=== PATIENT | female | born 1960 | race Caucasian/White ===

== ENCOUNTER → 2021-06-19 | Emergency (ER) | payer BC, SELFPAY ==
[2021-06-19 14:30] VITALS: BP_SYST 117
== END | disposition left against medical advice (07) ==
LOC: SED 14:30
DX: U07.1 COVID-19 (principal); Z53.21 Procedure and treatment not carried out due to patient leaving prior to being seen by health care provider

== ENCOUNTER 2022-04-22 16:22 | Inpatient (IN) | payer BC ==
[~2022-04-22] VITALS: Ht 152.4 cm; Wt 64.9 kg
[2022-04-22 16:29] VITALS: BP_SYST 149
--- NOTE | 2022-04-22 16:30 | NUR ---
Patient triaged and placed in waiting room. VSS and patient appears in no acute distress at this time. Accompanied by SELF, awaiting available bed, and MD notified of need for MSE.
[2022-04-22 16:57] LABS: BASOPHILS # (AUTO) 0.1 K/uL (0.0-0.2); BASOPHILS % (AUTO) 1.2 % (0.0-2.0); EOSINOPHILS # (AUTO) 0.2 K/uL (0.0-0.4); EOSINOPHILS % (AUTO) 2.1 % (0.0-4.0); HEMATOCRIT 42.6 % (36-48); HEMOGLOBIN 14.8 g/dL (12.0-16.0); LYMPHOCYTES # (AUTO) 2.4 K/uL (1.0-5.5); LYMPHOCYTES % (AUTO) 28.4 % (20.5-51.5); MEAN CORPUSCULAR HEMOGLOBIN 32 pg (27-31); MEAN CORPUSCULAR HGB CONC 35 % (32-36); MEAN CORPUSCULAR VOLUME 91 fL (79.0-98.0); MONOCYTES # (AUTO) 0.7 K/uL (0.0-1.0); MONOCYTES % (AUTO) 8.6 % (1.7-9.3); NEUTROPHILS # (AUTO) 5.1 K/uL (1.8-7.7); NEUTROPHILS % (AUTO) 59.7 % (40.0-70.0); PLATELET COUNT (AUTO) 296 K/uL (130-430); RED CELL DISTRIBUTION WIDTH 12.7 % (9.0-15.0); WHITE BLOOD COUNT (AUTO) 8.5 K/uL (4.8-10.8)
[2022-04-22 17:11] LABS: ALANINE AMINOTRANSFERASE 27 U/L (12-78); ALBUMIN 3.9 g/dL (3.4-4.8); ANION GAP 8 (5-15); ASPARTATE AMINOTRANSFERASE 21 U/L (10-37); CALCIUM 9.6 mg/dL (8.4-11.0); CHLORIDE 105 mmol/L (98-107); CREATININE 0.88 mg/dL (0.55-1.30); GLUCOSE 109 mg/dL (70-99); POTASSIUM 4.3 mmol/L (3.5-5.1); TOTAL BILIRUBIN 0.5 mg/dL (0.0-1.0); UREA NITROGEN, BLOOD 18 mg/dL (8-21)
[2022-04-22 17:16] LABS: GFR AFRICAN AMERICAN 84 mL/min (>90)
--- NOTE | 2022-04-22 21:38 | NUR ---
Pt from home with c/o chest pressure and SOB with exerction for 2 weeks. Pt was told by PA to come to ER. Pt slightly tachycardic at 97 BPM. Pt speaking in full sentences with even and unlabored resps, O2 sat at 94%
--- NOTE | 2022-04-22 22:31 | NUR ---
Dr. Shell at bedside with patient for evaluation.
[2022-04-22] MEDS ORDERED: ASPIRIN 81 MG TAB.CHEW PO ONE (22:45)
--- NOTE | 2022-04-22 22:48 | NUR ---
# 20 gauge angiocath placed to LAC. Use of asceptic technique. Opsite placed over site. Blood return noted. Flushed with 10 cc of normal saline. No evidence of infiltration noted. Patient tolerated well.
--- NOTE | 2022-04-22 22:51 | NUR ---
PHAM COLLECTED AND SENT TO LAB.
--- NOTE | 2022-04-22 23:05 | NUR ---
Pt unable to provide all at home medications. Pt reports that family will bring medication list in the morning.
--- NOTE | 2022-04-22 23:45 | NUR ---
Admit bed requested Patient will be admitted to care of . Admitted to TELE unit. Diagnosis: SOB, TACHYCARDIA Inpatient (Yes or No) Y Observation (Yes or No) N Orientation concerns or request close to nursing station (Yes or No) N Covid Status : PENDING From Home (Yes or if No enter name of facility) YES Med Rec Completed (Yes of No) PENDING
--- NOTE | 2022-04-23 00:30 | NUR ---
Patient will be admitted to care of Dr. Bhatti. Admitted to TELEMETRY unit. Will go to room 116A. Belongings list completed. Complete and up to date summary report printed. SBAR report given to Miko FLORES at bedside with opportunity for questions.
[2022-04-23 00:54] VITALS: BP_SYST 139
--- NOTE | 2022-04-23 02:00 | NUR ---
Got the report from Er nurse about the new admitted patient. Pt is alert and oriented x 4 very pleasant, cooperative and ambulatory. Boyfriend was at the bedside.
[2022-04-23 02:36] VITALS: BP_SYST 139
[2022-04-23 06:30] LABS: BASOPHILS # (AUTO) 0.2 K/uL (0.0-0.2); BASOPHILS % (AUTO) 2.1 % (0.0-2.0); EOSINOPHILS # (AUTO) 0.2 K/uL (0.0-0.4); EOSINOPHILS % (AUTO) 2.2 % (0.0-4.0); HEMOGLOBIN 14.6 g/dL (12.0-16.0); LYMPHOCYTES # (AUTO) 1.9 K/uL (1.0-5.5); LYMPHOCYTES % (AUTO) 22.7 % (20.5-51.5); MEAN CORPUSCULAR HEMOGLOBIN 31 pg (27-31); MEAN CORPUSCULAR HGB CONC 35 % (32-36); MEAN CORPUSCULAR VOLUME 91 fL (79.0-98.0); MONOCYTES # (AUTO) 0.5 K/uL (0.0-1.0); MONOCYTES % (AUTO) 6.3 % (1.7-9.3); NEUTROPHILS # (AUTO) 5.7 K/uL (1.8-7.7); NEUTROPHILS % (AUTO) 66.7 % (40.0-70.0); PLATELET COUNT (AUTO) 282 K/uL (130-430); RED BLOOD CELL COUNT(AUTO) 4.64 MIL/uL (4.2-6.2); WHITE BLOOD COUNT (AUTO) 8.6 K/uL (4.8-10.8)
[2022-04-23 06:46] LABS: CALCIUM 8.7 mg/dL (8.4-11.0); CREATININE 0.86 mg/dL (0.55-1.30); POTASSIUM 3.9 mmol/L (3.5-5.1)
--- NOTE | 2022-04-23 07:30 | NUR ---
OPENING NOTES: PATIENT IS RESTING IN BED QUIETLY. AAOX4 ABLE TO MAKE NEEDS KNOWN. NO ADDITIONAL DISTRESS OR PAIN NOTED. EXPLAINED POC AND PATIENT VERBALIZED UNDERSTANDING. BED IN LOW AND LOCK POSITION. CALL LIGHT AND BEDSIDE TABLE WITHIN REACH. STABLE CONDITION AT THIS TIME.
[2022-04-23 08:00] VITALS: BP_SYST 142; BP_SYST 147
[2022-04-23] MEDS ORDERED: LOSA100T3 PO (08:25)
[2022-04-23] MEDS ORDERED: ROSU5TAB13 PO (08:25)
--- NOTE | 2022-04-23 10:35 | NUR ---
CONSULTATION PAGED/CALLED Reason for Consultation: []chest pain Person Who was Notified: []Neela Consulting Physician: [] Dr. [place] Tree Thinner Specialty: []cardio Ordering Physician: []Dr. Bhatti
[2022-04-23 11:22] VITALS: BP_SYST 150
[2022-04-23] MEDS ORDERED: ROSUVASTATIN CALCIUM 5 MG/TAB (CRESTOR) PO SCH (12:45)
[2022-04-23] MEDS ORDERED: ATORVASTATIN 20 MG TABLET PO ONE (13:00)
[2022-04-23] MEDS ORDERED: LOSARTAN POTASSIUM 50 MG TABLET (COZAAR) PO ONE (13:30)
--- NOTE | 2022-04-23 14:20 | NUR ---
CONSULTATION PAGED/CALLED Reason for Consultation: []SOB Person Who was Notified: []Christopher Consulting Physician: [] Dr. Sneed Text Transcriber Specialty: []Pulmonary Ordering Physician: []Dr. Bhatti
--- NOTE | 2022-04-23 14:21 | NUR ---
CONSULTATION PAGED/CALLED Reason for Consultation: []CP Person Who was Notified: []Porsha Consulting Physician: [] / Roula Howe Telehealth Nurse Specialty: []Cardio Ordering Physician: []Dr. Bhatti
[2022-04-23 16:35] VITALS: BP_SYST 125
--- NOTE | 2022-04-23 16:37 | NUR ---
REFUSED CURRENT MEDICATION: PER PATIENT SHE WILL TAKE HER CRESTOR AND COZAAR WHEN SHE GETS HOME TODAY. SPOKE WITH DR RIOS AND STATED THAT HE WILL DC HER HOME TODAY. PATIENT DOES NOT WANT TO WEAR HER TELE MONITOR SINCE SHES BEING DC HOME. AT THE BEDSIDE AND PATIENT IS GETTING DRESS. Addendum: 04/23/22 at 1806 by Eighty Nine MARK Panda RN REFUSED ATORVASTATIN NOT CRESTOR Addendum: 04/23/22 at 1807 by Pablo Panda RN RN NOT . A YARITZA "FRIEND" AT THE BEDSIDE
[2022-04-23 17:36] VITALS: BP_SYST 125
--- NOTE | 2022-04-23 17:55 | NUR ---
DC HOME: DC INSTRUCTION GIVEN AND EXPLAINED TO PATIENT AND SHE VERBALIZED UNDERSTANDING. IV REMOVED FROM THE RFA. IV CATH INTACT WHEN REMOVED. COVER SITE WITH GAUZE AND SECURE WITH TAPE. NO BLEEDING NOTED. DENIES PAIN OR DISTRESS AT THIS TIME. WHEELED OUT PATIENT IN A STABLE CONDITION ACCOMPANIED BY PRIMARY NURSE AND A YARITZA FRIEND. ALL PERSONAL BELONGINGS GIVEN TO PATIENT AND SHE DENIES MISSING ITEMS.
[2022-04-24] MEDS ORDERED: LOSARTAN POTASSIUM 50 MG TABLET (COZAAR) PO SCH (09:00)
[2022-04-24] MEDS ORDERED: ATORVASTATIN 20 MG TABLET PO SCH (09:00)
== END 2022-04-23 17:52 | disposition home or self-care (01) | DRG 206 ==
LOC: SED 16:22 → STU 23:45
PROVIDERS: ADMIT Internal Medicine; ATTEND Internal Medicine
DX: R09.02 Hypoxemia (principal); Z20.822 Contact with and (suspected) exposure to COVID-19; I27.20 Pulmonary hypertension, unspecified; E78.00 Pure hypercholesterolemia, unspecified; Z88.0 Allergy status to penicillin; Z79.899 Other long term (current) drug therapy; R07.89 Other chest pain
CPT/HCPCS: 36415; 71045; 80048; 80053; 84484; 85025; 85379; 93005; 99285; G0378

== ENCOUNTER 2022-06-30 01:38 | Emergency (ER) | payer BC ==
[~2022-06-30] VITALS: Ht 152.4 cm; Wt 66.7 kg
[~2022-06-30 01:38] MED LIST: LOSA100T3 PO; ROSU5TAB13 PO
[2022-06-30 01:40] VITALS: BP_SYST 141
--- NOTE | 2022-06-30 01:49 | NUR ---
Placed in room 8 . Placed on rn cardiac, blood pressure machine and pulse oximeter. To gown for exam. Side rails up.
--- NOTE | 2022-06-30 02:06 | NUR ---
ER at bedside examining patient.
[2022-06-30] MEDS ORDERED: PRED20TA PO (02:22)
[2022-06-30] MEDS ORDERED: predniSONE 20 MG TABLET PO ONE (02:30)
[2022-06-30 02:40] VITALS: BP_SYST 138
--- NOTE | 2022-06-30 02:40 | NUR ---
Patient given written and verbal discharge instructions and verbalizes understanding. ER MD discussed with patient the results and treatment provided. Patient in stable condition. ID arm band removed. Rx of Prednisone given. Patient educated on pain management and to follow up with PMD. Pain Scale 0/10. Opportunity for questions provided and answered. Medication side effect fact sheet provided.
== END 2022-06-30 02:40 | disposition home or self-care (01) ==
LOC: SED 01:38
DX: R05.9 Cough, unspecified (principal); R07.9 Chest pain, unspecified; R09.02 Hypoxemia; I10 Essential (primary) hypertension; Z88.0 Allergy status to penicillin; Z79.899 Other long term (current) drug therapy
CPT/HCPCS: 99283; J7512